=== PATIENT | male | born 1935 | race Two or more races ===

== ENCOUNTER 2017-04-11 09:32 | Inpatient (IN) | payer MEDICARE ==
--- NOTE | 2017-04-11 09:51 | PDOC ---
History of Present Illness - General Chief Complaint: Pain Stated Complaint: (PCP SENT) Time Seen by Provider: 04/11/17 09:50 History Source: Patient Exam Limitations: Language Barrier (Arely, the RN, was utilized as a salon sales consultant) - History of Present Illness Initial Comments: CHIEF COMPLAINT: 81 y/o afebrile male with PMH uncontrolled afib sent in by Exhibit Preparator for admission. HISTORY OF PRESENT ILLNESS: The patient states his Exhibit Preparator, Dr. Voss, sent him in for admission for possible cardioversion. The patient has a-fib, is currently on Dig and Eliquis but remains poorly controlled with intermittent symptoms of palpitations and dizziness. Dr. Voss would like to do possible cardioversion. The patient denies f/c, n/v/d, GRIGGS, changes in vision/hearing, CP , SOB, abd pain. PCP is Dr. Pressley Exhibit Preparator is Dr. Voss Vital signs on arrival are within normal limits. REVIEW OF SYSTEMS: GENERAL/CONSTITUTIONAL: No fever/chills. No weakness. No weight change. HEAD, EYES, EARS, NOSE AND THROAT: No change in vision. No ear pain or discharge. No sore throat. CARDIOVASCULAR: No chest pain or shortness of breath. +intermittent palpitations. RESPIRATORY: No cough, wheezing, or hemoptysis. GASTROINTESTINAL: No abd pain, nausea, vomiting, diarrhea. GENITOURINARY: No dysuria, frequency, or change in urination. MUSCULOSKELETAL: No joint or muscle swelling or pain. No neck or back pain. SKIN: No rash or easy bruising. NEUROLOGIC: +intermittent dizziness. No headache, loss of consciousness, or loss of sensation. PHYSICAL EXAM: GENERAL: The patient is awake, alert, and fully oriented, in no acute distress. he is well appearing and ambulatory. HEAD: Normal with no signs of trauma. ENT: Pupils equal, round and reactive to light, extraocular movements intact, sclera anicteric, conjunctiva clear. Neck supple. LUNGS: Clear to auscultation bilaterally. Normal excursion. No respiratory distress or use of accessory muscles. CV: Regular rate/irregular rhythm, S1/S2, no MRG. Cap refill < 2 sec. ABDOMEN: Soft, non-distended, non-tender even to deep palpation, no hepatomegaly or splenomegaly, no masses. EXTREMITIES: Normal range of motion. +2 pitting edema NEUROLOGICAL: Normal speech, normal gait. CN II-XII grossly intact. PSYCH: Normal mood, normal affect. SKIN: Warm, dry, normal turgor, no rashes or lesions noted. 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) COPD: (SOB) CHF: Yes Diabetes: Yes (TYPE 2) Disorders: Yes (DIVERTICULOSIS) HTN: Yes Hypercholesterolemia: Yes Liver Disease: (HEPATOMEGALY) Thyroid Disease: Yes (THYROID NODULE) - Surgical History Abdominal Surgery: Yes (HERNIA) - Psycho/Social/Smoking Cessation Hx Anxiety: No Suicidal Ideation: No Smoking History: Never smoked Hx Alcohol Use: No Drug/Substance Use Hx: No Substance Use Type: None *Physical Exam - Vital Signs Last Vital Signs Temp Pulse Resp BP Pulse Ox 98.1 F 84 20 155/97 98 04/11/17 09:32 04/11/17 09:32 04/11/17 09:32 04/11/17 09:32 04/11/17 09:32 Medical Decision Making - Medical Decision Making A/P: 81 y/o afebrile male on dig and eliquis for a-fib who remains poorly controlled and symptomatic with intermittent dizziness and palpitations here for admission for possible cardioversion. Plan is as follows: 1. Labs 2. EKG 3. CXR 4. UA Spoke with Dr. Pressley and he accepts admission. Spoke with Dr. Be, satellite installation technician for Dr. Voss, and he will consult with the patient. The patient was made aware of the plan for admission. *DC/Admit/Observation/Transfer Diagnosis at time of Disposition: Palpitations, Dizziness - Discharge Dispostion Admit: Yes
[2017-04-11 11:02] LABS: BASOPHIL 1.3 % (0-2.0); EOSINOPHIL 2.2 % (0-4.5); MCH 31.2 pg (25.7-33.7); MEAN CELL VOLUME 94.5 fl (80-96); MEAN PLT VOLUME 8.2 fl (7.5-11.1); NEUTROPHILS 67.9 % (42.8-82.8); PLATELET COUNT 174 K/MM3 (134-434); RDW 16.4 % (11.9-15.9); WHITE BLOOD COUNT 4.8 K/mm3 (4.0-10.0)
[2017-04-11 11:14] LABS: URINE APPEARANCE CLEAR; URINE BILIRUBIN NEGATIVE (NEGATIVE); URINE BLOOD 1+ (NEGATIVE); URINE COLOR LTYELLOW; URINE GLUCOSE (UA) NEGATIVE (NEGATIVE); URINE KETONE NEGATIVE (NEGATIVE); URINE LEUK ESTERASE NEGATIVE (NEGATIVE); URINE NITRITE NEGATIVE (NEGATIVE); URINE PROTEIN NEGATIVE (NEGATIVE); URINE UROBILINOGEN NEGATIVE E.U./dl (0.2-1.0)
[2017-04-11 11:16] LABS: URINE BACTERIA RARE /hpf (NONE SEEN); URINE HYALINE CAST 7 /lpf; URINE MUCUS RARE; URINE RBC 4 /hpf (0-3); URINE WBC 1 /hpf (3-5)
[2017-04-11 11:29] LABS: ALBUMIN 3.4 g/dl (3.4-5.0); ANION GAP 8 (8-16); BILIRUBIN,TOTAL 0.8 mg/dL (0.2-1.0); CALCIUM 8.6 mg/dL (8.5-10.1); CO2 30 mmol/L (21-32); GLUCOSE,RANDOM 145 mg/dL (74-106); SGOT/AST 12 U/L (15-37); SGPT/ALT 16 U/L (12-78); TOT PROT 7.3 g/dl (6.4-8.2)
[2017-04-11 11:30] LABS: ALK PHOS 67 U/L (45-117)
[2017-04-11 11:31] LABS: TROPONIN I < 0.02 ng/ml (0.00-0.05)
[2017-04-11] MEDS ORDERED: ACETAMINOPHEN 325 MG TABLET (FP) PO PRN (11:35)
--- NOTE | 2017-04-11 12:21 | CON.CARD ---
Cardiology Consult (text) - Consultation Consultation Note: cc: aflutter hpi: 81 m hx aflutter, htn, hld, dm, syst chf here with aflutter. 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 He has no sob, cp, palps, dizzy, loc, pnd, orthopnea. Mild chronic le edema. Sent to ER by silk washing machine operator dr valdovinos for poorly controlled aflutter and need for nahun/dccv. pmh: per hpi psh: hernia repair social: no tob fam: no premature cad ros: per hpi; no nvd, cough, fever, nasal congestion, carranza, vision changes, gib, hematuria, dysuria, muscle pains meds: Home Medications Medication Instructions Recorded Apixaban [Eliquis] 5 mg PO DAILY 03/28/17 Benzonatate 200 mg PO TID 03/28/17 Digoxin [Lanoxin -] 0.125 mg PO DAILY 03/28/17 Diltiazem Cd [Cardizem Cd -] 180 mg PO DAILY 03/28/17 Tamsulosin HCl [Flomax] 0.4 mg PO DAILY 03/28/17 pe: Vital Signs Period Temp Pulse Resp BP Sys/Kim Pulse Ox Last 24 Hr 98.1 F 84-84 16-20 137-155/78-97 97-98 nad no jvd irreg, s1s2 no mrg cta bl nl eff aaox3 trace le edema bl, no c/c abd nt nd pos bs no jaundice diaphoresis pos dp pt no carotid bruits Laboratory Last Values WBC 4.8 K/mm3 (4.0-10.0) 04/11/17 10:47 RBC 4.38 M/mm3 (4.00-5.60) 04/11/17 10:47 Hgb 13.7 GM/dL (11.7-16.9) 04/11/17 10:47 Hct 41.4 % (35.4-49) 04/11/17 10:47 MCV 94.5 fl (80-96) 04/11/17 10:47 MCHC 33.0 g/dl (32.0-35.9) 04/11/17 10:47 RDW 16.4 % (11.9-15.9) H 04/11/17 10:47 Plt Count 174 K/MM3 (134-434) 04/11/17 10:47 MPV 8.2 fl (7.5-11.1) 04/11/17 10:47 Neutrophils % 67.9 % (42.8-82.8) 04/11/17 10:47 Lymphocytes % 20.3 % (8-40) 04/11/17 10:47 Monocytes % 8.3 % (3.8-10.2) 04/11/17 10:47 Eosinophils % 2.2 % (0-4.5) 04/11/17 10:47 Basophils % 1.3 % (0-2.0) 04/11/17 10:47 Sodium 141 mmol/L (136-145) 04/11/17 10:47 Potassium 3.8 mmol/L (3.5-5.1) 04/11/17 10:47 Chloride 103 mmol/L (98-107) 04/11/17 10:47 Carbon Dioxide 30 mmol/L (21-32) 04/11/17 10:47 Anion Gap 8 (8-16) 04/11/17 10:47 BUN 16 mg/dL (7-18) 04/11/17 10:47 Creatinine 1.0 mg/dL (0.7-1.3) 04/11/17 10:47 Creat Clearance w eGFR > 60 (>60) 04/11/17 10:47 Random Glucose 145 mg/dL (74-106) H D 04/11/17 10:47 Calcium 8.6 mg/dL (8.5-10.1) 04/11/17 10:47 Total Bilirubin 0.8 mg/dL (0.2-1.0) 04/11/17 10:47 AST 12 U/L (15-37) L 04/11/17 10:47 ALT 16 U/L (12-78) 04/11/17 10:47 Alkaline Phosphatase 67 U/L (45-117) 04/11/17 10:47 Creatine Kinase 74 IU/L (39-308) 04/11/17 10:47 Troponin I < 0.02 ng/ml (0.00-0.05) 04/11/17 10:47 Total Protein 7.3 g/dl (6.4-8.2) 04/11/17 10:47 Albumin 3.4 g/dl (3.4-5.0) 04/11/17 10:47 Urine Color Ltyellow 04/11/17 10:47 Urine Appearance Clear 04/11/17 10:47 Urine pH 6.0 (5.0-8.0) 04/11/17 10:47 Urine Protein Negative (NEGATIVE) 04/11/17 10:47 Urine Glucose (UA) Negative (NEGATIVE) 04/11/17 10:47 Urine Ketones Negative (NEGATIVE) 04/11/17 10:47 Urine Blood 1+ (NEGATIVE) H 04/11/17 10:47 Urine Nitrite Negative (NEGATIVE) 04/11/17 10:47 Urine Bilirubin Negative (NEGATIVE) 04/11/17 10:47 Urine Urobilinogen Negative E.U./dl (0.2-1.0) 04/11/17 10:47 Ur Leukocyte Esterase Negative (NEGATIVE) 04/11/17 10:47 Urine RBC 4 /hpf (0-3) 04/11/17 10:47 Urine WBC 1 /hpf (3-5) 04/11/17 10:47 Ur Epithelial Cells Rare /hpf (FEW) 04/11/17 10:47 Urine Bacteria Rare /hpf (NONE SEEN) 04/11/17 10:47 Hyaline Casts 7 /lpf 04/11/17 10:47 Urine Mucus Rare 04/11/17 10:47 mibi 12/2014: no ischemia, nl lvef echo 03/2017: sev dec lvef, global hk, nl lv size, nl rv, sev lae, mild yeison, mild ar, mod post directed mr, mod tr, mild phtn ecg 04/11/17: aflutter, vr 78, ovc/aberrant conduction, no st changes, nonspecific tw changes a/p: 81 m hx aflutter, htn, hld, dm, syst chf here with aflutter. 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
[2017-04-11 13:25] VITALS: BMI 34.6
--- NOTE | 2017-04-11 15:49 | HP ---
Admitting History and Physical - Primary Care Physician PCP: Peng Pressley - Admission Chief Complaint: ARRYTHMIA UNCONTROLLED History of Present Illness: The patient states his Recreation Worker, Dr. Voss, sent him in for admission for possible cardioversion. The patient has a-fib, is currently on Dig and Eliquis but remains poorly controlled with intermittent symptoms of palpitations and dizziness. Dr. Voss would like to do possible cardioversion. The patient denies f/c, n/v/d, GRIGGS, changes in vision/hearing, CP, SOB, abd pain. History Source: Medical Record - Past Medical History Cardiovascular: Yes: Other - Smoking History Smoking history: Never smoked Have you smoked in the past 12 months: No - Alcohol/Substance Use Hx Alcohol Use: No Home Medications - Allergies Allergies/Adverse Reactions: Allergies Allergy/AdvReac Type Severity Reaction Status Date / Time No Known Allergies Allergy Verified 04/11/17 09:39 - Home Medications Home Medications: Ambulatory Orders Apixaban [Eliquis] 5 mg PO DAILY 03/28/17 Benzonatate 200 mg PO TID 03/28/17 Digoxin [Lanoxin -] 0.125 mg PO DAILY 03/28/17 Diltiazem Cd [Cardizem Cd -] 180 mg PO DAILY 03/28/17 Tamsulosin HCl [Flomax] 0.4 mg PO DAILY 03/28/17 Review of Systems - Review of Systems Constitutional: reports: Weakness Eyes: reports: No Symptoms HENT: reports: No Symptoms Neck: reports: No Symptoms Cardiovascular: reports: Palpitations, Shortness of Breath Respiratory: reports: SOB Gastrointestinal: reports: No Symptoms Genitourinary: reports: No Symptoms Musculoskeletal: reports: No Symptoms Integumentary: reports: No Symptoms Neurological: reports: Dizziness, Headache Endocrine: reports: No Symptoms Physical Examination Vital Signs: Vital Signs Temperature 98.5 F 04/11/17 15:11 Pulse Rate 73 04/11/17 15:11 Respiratory Rate 20 04/11/17 15:11 Blood Pressure 132/72 04/11/17 15:11 O2 Sat by Pulse Oximetry (%) 98 04/11/17 14:14 Constitutional: Yes: Mild Distress Eyes: Yes: WNL HENT: Yes: WNL Neck: Yes: WNL Cardiovascular: Yes: Tachycardia, Pulse Irregular Gastrointestinal: Yes: WNL Renal/: Yes: WNL Musculoskeletal: Yes: WNL Extremities: Yes: WNL Edema: No Peripheral Pulses WNL: Yes Integumentary: Yes: WNL Wound/Incision: Yes: Clean/Dry Neurological: Yes: WNL ...Motor Strength: WNL Psychiatric: Yes: WNL Labs: CBC, BMP 04/11/17 10:47 04/11/17 10:47 Problem List - Problems (1) Dizziness Code(s): R42 - DIZZINESS AND GIDDINESS (2) Palpitations Code(s): R00.2 - PALPITATIONS (3) Atrial flutter with rapid ventricular response Code(s): I48.92 - UNSPECIFIED ATRIAL FLUTTER Assessment/Plan AC RESTARTED CARDIOLOGY EVAL [facility]ERS[facility]
[2017-04-11] MEDS: APIXABAN 5 MG TABLET PO SCH (21:46)
[2017-04-11 21:59] LABS: FREE T4 1.27 ng/dl (0.76-1.16); THYROID STIMULATING HORMONE 1.22 uIU/ml (0.358-3.74)
[2017-04-12 07:30] LABS: MCH 31.6 pg (25.7-33.7); MCHC 33.7 g/dl (32.0-35.9); MEAN CELL VOLUME 93.8 fl (80-96); MEAN PLT VOLUME 8.9 fl (7.5-11.1); PLATELET COUNT 162 K/MM3 (134-434); RDW 15.5 % (11.9-15.9); WHITE BLOOD COUNT 4.1 K/mm3 (4.0-10.0)
[2017-04-12 08:04] LABS: CHOLESTEROL 101 mg/dL (50-200)
[2017-04-12 08:11] LABS: LDL CHOLESTEROL (ONLY SJRH) 52 mg/dL (5-100)
[2017-04-12] MEDS: APIXABAN 5 MG TABLET PO SCH ×2 (09:44→21:58)
[2017-04-12] MEDS: TAMSULOSIN HCL 0.4 MG CAP.ER.24H (FP) PO SCH (09:44)
--- NOTE | 2017-04-12 10:24 | PN ---
Progress Note (short form) - Note Progress Note: s: no cp sob palps dizzy o: Vital Signs Period Temp Pulse Resp BP Sys/Kim Pulse Ox Last 24 Hr 97.8 F-98.8 F 73-90 16-20 127-148/7-78 97-99 nad no jvd irreg, s1s2 no mrg cta bl nl eff aaox3 trace le edema bl, no c/c abd nt nd pos bs no jaundice diaphoresis Current Medications Generic Name Dose Route Start Last Admin Trade Name Freq PRN Reason Stop Dose Admin Acetaminophen 650 mg 04/11/17 11:35 Tylenol - PO Q6H PRN FEVER OR PAIN Apixaban 5 mg 04/11/17 22:00 04/12/17 09:44 Eliquis - PO 5 mg BID VANNESA Administration Digoxin 0.125 mg 04/12/17 10:00 Lanoxin - PO DAILY VANNESA Diltiazem HCl 180 mg 04/12/17 10:00 Cardizem Cd - PO DAILY VANNESA Tamsulosin HCl 0.4 mg 04/12/17 08:30 04/12/17 09:44 Flomax - PO 0.4 mg DAILY@0830 VANNESA Administration CBC, BMP 04/12/17 05:35 04/11/17 10:47 mibi 12/2014: no ischemia, nl lvef echo 03/2017: sev dec lvef, global hk, nl lv size, nl rv, sev lae, mild yeison, mild ar, mod post directed mr, mod tr, mild phtn ecg 04/11/17: aflutter, vr 78, ovc/aberrant conduction, no st changes, nonspecific tw changes tele: afib/flutter, vr 120s at times a/p: 81 m hx aflutter, htn, hld, dm, syst chf here with aflutter. 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
--- NOTE | 2017-04-12 11:29 | EKG ---
Test Reason : Blood Pressure : / mmHG Vent. Rate : 078 BPM Atrial Rate : 357 BPM P-R Int : 000 ms QRS Dur : 094 ms QT Int : 348 ms P-R-T Axes : 000 -18 213 degrees QTc Int : 396 ms ATRIAL FIBRILLATION WITH PREMATURE VENTRICULAR OR ABERRANTLY CONDUCTED COMPLEXES LOW VOLTAGE QRS NONSPECIFIC T WAVE ABNORMALITY ABNORMAL ECG NO PREVIOUS ECGS AVAILABLE Confirmed by SD MORE MD ([id number]) on 04/12/2017 11:28:33 AM Referred By: Confirmed By:SD MORE MD
[2017-04-12] MEDS ORDERED: PROPOFOL 20 ML ONE ×2 (14:03)
[2017-04-12] MEDS ORDERED: LIDOCAINE HCL 2% 100 MG/5 ML DISP.SYRIN ONE (14:09)
[2017-04-12] MEDS ORDERED: LIDOCAINE VISCOUS 2% ORAL/TOP 20 ML UNIT-DOSE CUP MM ONE (14:34)
--- NOTE | 2017-04-12 15:31 | PROC ---
Transesophageal Echocardiogram - Pre-Procedure Indications: Other (Pre-cardioversion) Risks and Benefits Explained: Yes Consent on Chart: Yes - Procedure Procedure Done: in Endoscopy Suite Medication given: propofol sedation with anesthesia Findings: Cannot exclude left atrial appendage thrombus. Remarks: Suspicion for small mobile thrombus in left atrial appendage. Cardioversion deferred. See EMR for full [facility] report.
[2017-04-12] MEDS: DIGOXIN 0.125 MG TABLET (FP) PO SCH (17:16)
--- NOTE | 2017-04-12 20:22 | PN ---
Progress Note, Physician Chief Complaint: awake alert nad awaiting procedure - Current Medication List Current Medications: Active Medications Acetaminophen (Tylenol -) 650 mg PO Q6H PRN PRN Reason: FEVER OR PAIN Apixaban (Eliquis -) 5 mg PO BID [facility] Last Admin: 04/12/17 09:44 Dose: 5 mg Digoxin (Lanoxin -) 0.125 mg PO DAILY [facility] Last Admin: 04/12/17 17:16 Dose: 0.125 mg Diltiazem HCl (Cardizem Cd -) 180 mg PO DAILY [facility] Last Admin: 04/12/17 17:16 Dose: 180 mg Tamsulosin HCl (Flomax -) 0.4 mg PO DAILY@0830 [facility] Last Admin: 04/12/17 09:44 Dose: 0.4 mg - Objective Vital Signs: Vital Signs Temperature 98.0 F 04/12/17 17:00 Pulse Rate 128 H 04/12/17 17:16 Respiratory Rate 18 04/12/17 17:00 Blood Pressure 134/88 04/12/17 17:00 O2 Sat by Pulse Oximetry (%) 99 04/12/17 15:55 Constitutional: Yes: No Distress Eyes: Yes: WNL HENT: Yes: WNL Neck: Yes: WNL Cardiovascular: Yes: Pulse Irregular Respiratory: Yes: WNL Gastrointestinal: Yes: WNL Genitourinary: Yes: WNL Musculoskeletal: Yes: WNL Extremities: Yes: WNL Edema: No Peripheral Pulses WNL: Yes Integumentary: Yes: WNL Wound/Incision: Yes: Clean/Dry Neurological: Yes: WNL ...Motor Strength: WNL Psychiatric: Yes: WNL Labs: CBC, BMP 04/12/17 05:35 04/11/17 10:47 Problem List - Problems (1) Dizziness Code(s): R42 - DIZZINESS AND GIDDINESS (2) Palpitations Code(s): R00.2 - PALPITATIONS (3) Atrial flutter with rapid ventricular response Code(s): I48.92 - UNSPECIFIED ATRIAL FLUTTER Assessment/Plan s/p cardioversion await cardiology instructions dc planning am
[2017-04-13] MEDS: DIGOXIN 0.125 MG TABLET (FP) PO SCH (09:05)
[2017-04-13] MEDS: APIXABAN 5 MG TABLET PO SCH (09:05)
[2017-04-13] MEDS: TAMSULOSIN HCL 0.4 MG CAP.ER.24H (FP) PO SCH (09:05)
--- NOTE | 2017-04-13 11:05 | DS ---
Physical Examination Vital Signs: Vital Signs Temperature 97.9 F 04/13/17 09:51 Pulse Rate 117 H 04/13/17 09:51 Respiratory Rate 18 04/13/17 09:51 Blood Pressure 150/84 04/13/17 09:51 O2 Sat by Pulse Oximetry (%) 99 04/13/17 09:00 Constitutional: Yes: No Distress Eyes: Yes: WNL HENT: Yes: WNL Neck: Yes: WNL Cardiovascular: Yes: Pulse Irregular Respiratory: Yes: WNL Gastrointestinal: Yes: WNL Renal/: Yes: WNL Musculoskeletal: Yes: WNL Extremities: Yes: WNL Peripheral Pulses WNL: Yes Integumentary: Yes: WNL Wound/Incision: Yes: Clean/Dry Neurological: Yes: WNL ...Motor Strength: WNL Psychiatric: Yes: WNL Labs: CBC, BMP 04/12/17 05:35 04/11/17 10:47 Discharge Summary Reason For Visit: PALPITATIONS,DIZZINESS Current Active Problems Atrial flutter with rapid ventricular response (Acute) Dizziness (Acute) Palpitations (Acute) Procedures: Principal: [facility]CARDIOVERSION Hospital Course: THROMBUS FOUND IN CARDIAC [facility] CARDIOVERSION ATTEMPT, WILL NEED AC AND INDERAL ADDED, F/U CARDIOLOGY OUTPATIENT Condition: Good - Instructions Diet, Activity, Other Instructions: SEE PMD IN 1 WEEK LOW SALT Referrals: Peng Pressley MD [Primary Care Provider] - Disposition: HOME - Home Medications Comprehensive Discharge Medication List: Ambulatory Orders Apixaban [Eliquis] 5 mg PO DAILY 03/28/17 Benzonatate 200 mg PO TID 03/28/17 Digoxin [Lanoxin -] 0.125 mg PO DAILY 03/28/17 Diltiazem Cd [Cardizem Cd -] 180 mg PO DAILY 03/28/17 Tamsulosin HCl [Flomax] 0.4 mg PO DAILY 03/28/17 Acetaminophen [Tylenol .Regular Strength -] 650 mg PO Q6H PRN #0 tablet Apixaban [Eliquis -] 5 mg PO BID tablet 04/13/17 Digoxin [Lanoxin -] 0.125 mg PO DAILY tablet 04/13/17 Diltiazem Cd [Cardizem Cd -] 180 mg PO DAILY #30 tab 04/13/17 Propranolol HCl [Inderal LA -] 120 mg PO BID #60 tab 04/13/17
--- NOTE | 2017-04-13 11:26 | PN ---
Progress Note (short form) - Note Progress Note: s: no cp sob palps dizzy; wants to go home o: Vital Signs Period Temp Pulse Resp BP Sys/Kim Pulse Ox Last 24 Hr 97.9 F-99 F 68-128 12-18 112-150/69-88 98-99 nad no jvd irreg, s1s2 no mrg cta bl nl eff aaox3 trace le edema bl, no c/c abd nt nd pos bs no jaundice diaphoresis Current Medications Generic Name Dose Route Start Last Admin Trade Name Freq PRN Reason Stop Dose Admin Acetaminophen 650 mg 04/11/17 11:35 Tylenol - PO Q6H PRN FEVER OR PAIN Apixaban 5 mg 04/11/17 22:00 04/13/17 09:05 Eliquis - PO 5 mg BID VANNESA Administration Digoxin 0.125 mg 04/12/17 10:00 04/13/17 09:05 Lanoxin - PO 0.125 mg DAILY VANNESA Administration Diltiazem HCl 180 mg 04/12/17 10:00 04/13/17 09:05 Cardizem Cd - PO 180 mg DAILY VANNESA Administration Propranolol HCl 120 mg 04/13/17 10:00 04/13/17 10:17 Inderal La - PO 120 mg BID VANNESA Administration Tamsulosin HCl 0.4 mg 04/12/17 08:30 04/13/17 09:05 Flomax - PO 0.4 mg DAILY@0830 VANNESA Administration CBC, BMP 04/12/17 05:35 04/11/17 10:47 mibi 12/2014: no ischemia, nl lvef echo 03/2017: sev dec lvef, global hk, nl lv size, nl rv, sev lae, mild yeison, mild ar, mod post directed mr, mod tr, mild phtn ecg 04/11/17: aflutter, vr 78, ovc/aberrant conduction, no st changes, nonspecific tw changes tele: afib/flutter, vr<110 at rest, up to 120s with exertion a/p: 81 m hx aflutter, htn, hld, dm, syst chf here with aflutter. 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
[2017-04-13 14:25] VITALS: BP 116/50; PULSE 82; TEMP 98.5
== END 2017-04-13 16:47 | disposition home or self-care (01) | DRG 309 ==
LOC: JER 09:32 → JERBED 10:28 → J4W 12:24
PROVIDERS: ADMIT Family Medicine; ATTEND Family Medicine
PROC: B246ZZ4 Ultrasonography of Right and Left Heart, Transesophageal (ICD-10-PCS; principal; 2017-04-12 14:00)
DX: I48.92 Unspecified atrial flutter (principal); I50.22 Chronic systolic (congestive) heart failure; I48.91 Unspecified atrial fibrillation; Z79.01 Long term (current) use of anticoagulants; E78.5 Hyperlipidemia, unspecified; E11.9 Type 2 diabetes mellitus without complications; I11.0 Hypertensive heart disease with heart failure; I51.3 Intracardiac thrombosis, not elsewhere classified; R42 Dizziness and giddiness; I42.8 Other cardiomyopathies
CPT/HCPCS: 36415; 71020-TC; 80053; 80061; 80162; 81003; 81015; 82550; 83036; 83721; 84439; 84443; 84484; 85025; 85027; 93005; 93010; 93312; 93325; 99283-25